=== PATIENT | female | born 1955 | race Caucasian/White ===

== ENCOUNTER 2022-05-14 19:09 | Emergency (ER) | payer MEDICARE, BC, SELFPAY ==
[2022-05-14 19:31] VITALS: BP 139/68; PULSE 82; RESP 16; TEMP 36.5; O2SAT 100
--- NOTE | 2022-05-14 20:05 | ED.FALL ---
HPI - Fall General Chief Complaint: Wound/Laceration Stated Complaint: laceration forehead,fall Time Seen by Provider: 05/14/22 19:35 Source: patient Mode of arrival: ambulatory Limitations: no limitations History of Present Illness HPI Narrative: Reilly is a 6-year-old female patient presenting to the clinic today with complaints of falling in the shower at 0530 this morning and hitting her head on the bathtub. She also reports that she burned her left thigh on a heater when she fell. States she did lose consciousness for approximately 1 minute. She has a 4 cm complex laceration to the left forehead. States she did a prep last night for colonoscopy/EGD and felt as though she may have been dehydrated and got too hot and fainted in the shower. Has a not to the left forehead. She put a Band-Aid over the laceration and went to her procedure in [place]. States that she told the anesthesiologist and GI specialist that she fell and hit her head and lost consciousness and they told her as long as her blood pressure was stable that they would do the procedure. Patient went through with the EGD/colonoscopy procedure. Patient also states that she had iron infusion completed today. Has stopped her Coumadin approximately 1 week ago for procedure. States her hematology Dr. in [place] is going to be prescribing her some Silvadene cream for her burn. Patient drove herself to the clinic today. She denies any headache, dizziness, neck pain, or visual changes. Related Data Home Medications Medication Instructions Recorded Confirmed azilsartan medoxomil 40 1 tablet PO DAILY 05/14/22 05/14/22 mg-chlorthalidone 12.5 mg tablet (Edarbyclor) Allergies Allergy/AdvReac Type Severity Reaction Status Date / Time No Known Allergies Allergy Mild Verified 05/14/22 20:00 Review of Systems Review of Systems: Pertinent positives per HPI. Patient denies any fever, chills, rash, headache, visual changes, dizziness, cough, runny nose, sore throat, shortness of breath, chest pain, palpitations, nausea, vomiting, diarrhea, constipation, abdominal pain, or any urinary issues. [facility] Family History Family History Father Hypertension Family history of diabetes mellitus in first degree relative Social History Social History Smoking status: Never smoker Alcohol intake: never Comments At the time of my signature, I reviewed and agree with the nursing past medical, surgical, social, and family history. There is no relevant family history pertinent to the patient complaint. Exam Narrative: General: Well-developed, well nourished, in no apparent distress Head: Normocephalic, atraumatic Eyes: Pupils equally round and reactive to light bilaterally, EOM intact, sclera and conjunctive clear, no discharge, lids normal Ears: TMs intact and clear, ear canals clear, no drainage, grossly hearing normal. Nose: Nares patent, no discharge, no inflammation, no sinus tenderness. Mouth: Oropharynx without lesions or masses, good dentition, MMM. Tongue midline, even rise and fall of uvula Neck: Supple, trachea midline, no enlargement of anterior or posterior cervical nodes, no thyroid masses or goiter palpable. Cardio: Regular rate and rhythm, s1 and s2 normal, no murmur appreciated. Resp: Clear to auscultation bilaterally anteriorly and posteriorly, no rhonchi, rales, wheezing or rubs Musculoskeletal: No deformity, non-tender to palpation, grossly normal range of motion, muscle strength strong and equal, peripheral pulse strong, no edema, no cyanosis, normal gait and station Neuro: Alert and oriented x4 with normal speech, no focal deficits, cranial nerves I through XII intact, muscle strength 5 out of 5, sensation intact bilaterally, Integumentary: Pale, warm, dry, gapped 4 cm jagged laceration to the left forehead with bruisi
== END 2022-05-14 20:30 | disposition left against medical advice (07) ==
LOC: EXPTROY 19:22
PROVIDERS: Emergency Provider Nurse Practitioner Family
DX: S01.81XA Laceration without foreign body of other part of head, initial encounter (principal); W18.2XXA Fall in (into) shower or empty bathtub, initial encounter; S06.0X9A Concussion with loss of consciousness of unspecified duration, initial encounter; T24.212A Burn of second degree of left thigh, initial encounter; W29.2XXA Contact with other powered household machinery, initial encounter; I10 Essential (primary) hypertension
CPT/HCPCS: 99213; G0463

== ENCOUNTER 2023-06-13 10:38 | Emergency (ER) | payer MEDICARE, BC, SELFPAY ==
--- NOTE | 2023-06-13 10:39 | ED.FEMALEGU ---
HPI - Female Genitourinary General Chief complaint: Urogenital-Female Stated complaint: UTI Time Seen by Provider: 06/13/23 10:39 Source: patient Mode of arrival: ambulatory Limitations: no limitations History of Present Illness HPI Narrative: A 59-year-old female who presents with 2 days of urinary wetness but no incontinence along with the feeling of having spasms. Denies any burning with urination, low back pain, fever, chills, nausea, vomiting, diarrhea. MD elicited complaint: dysuria Related Data Home Medications Medication Instructions Recorded Confirmed cyclosporine 0.05 % eye drops in a 1 drp EACH EYE BID 06/13/23 06/13/23 dropperette (Restasis) olmesartan 40 1 tablet PO DAILY 06/13/23 06/13/23 mg-hydrochlorothiazide 25 mg tablet omeprazole 40 mg capsule,delayed 40 mg PO DAILY 06/13/23 06/13/23 release warfarin 3 mg tablet 3 mg PO DAILY 06/13/23 06/13/23 Allergies Allergy/AdvReac Type Severity Reaction Status Date / Time No Known Allergies Allergy Mild Verified 06/13/23 10:40 Review of Systems Review of Systems: All systems reviewed & are unremarkable except as noted in HPI and below Constitutional: Constitutional: Denies chills, Denies fever(s), Denies headache(s), Denies malaise and Denies weakness Eyes: Eyes: Denies change in vision, Denies eye discharge and Denies irritation ENT: Denies otalgia, Denies headache(s), Denies nasal congestion, Denies nasal discharge, Denies sinus pain and Denies sore throat Cardiovascular: Cardiovascular: Denies chest pain, Denies edema, Denies palpitations and Denies dyspnea Respiratory: Respiratory: Denies cough and Denies dyspnea Gastrointestinal: Gastrointestinal: Denies abdominal pain, Denies diarrhea, Denies nausea and Denies vomiting Genitourinary: Genitourinary: Denies hematuria, Denies nocturia, Denies dysuria, Denies flank pain and Reports urinary urgency Musculoskeletal: Musculoskeletal: Denies back pain and Denies numbness Integumentary/Breasts: Skin/Breast: Denies pruritus and Denies rash Neurologic: Denies headache(s), Denies numbness and Denies weakness Psychiatric: Psychiatric: Reports no additional psychiatric complaints Endocrine: Endocrine: Denies palpitations PMFSH Family History Family History Father Hypertension Family history of diabetes mellitus in first degree relative Social History Social History Smoking status: Never smoker Alcohol intake: never Comments At time of signature, agree with nursing past medical, surgical, social and family history. There is no relevant family history pertinent to the presenting complaint. Exam Const: General: cooperative, healthy appearing, comfortable, no acute distress and well nourished Nutritional Appearance: well nourished Orientation/consciousness: patient oriented x3 HENMT: Head: normocephalic and atraumatic Ears: external ears normal Face/Nose/Sinus: Normal external nose present, Normal nares present and normal facial exam Face and sinus: normal facial exam Eyes: General: appearance normal, both eyes and all related structures Pupils: Equal, round and reactive pupils present EOM: EOMs intact bilaterally Neck: Neck: normal visual inspection, full ROM and supple Chest: Chest palpation & inspection: normal inspection of the chest Resp: Effort & Inspection: normal respiratory effort and able to speak in complete sentences Cardio: Rate: regular rate Rhythm: regular rhythm GI: Inspection: normal to inspection GI Palp: No abdominal tenderness and Yes Soft to palpation : General: Yes no CVA tenderness Back/Spine/Pelvis: Back: no CVA tenderness Skin: General skin exam: normal color and no rashes or lesions noted Neuro: General: patient oriented x3 and moves all extremities Cranial nerves: Yes Equal, round and reactive pupils present Extrem: General:
[2023-06-13 10:49] VITALS: BP 148/84; PULSE 68; RESP 18; TEMP 36.7; O2SAT 99
== END 2023-06-13 11:03 | disposition home or self-care (01) ==
PROVIDERS: Emergency Provider Nurse Practitioner Family
DX: R39.89 Other symptoms and signs involving the genitourinary system (principal); I10 Essential (primary) hypertension; K21.9 Gastro-esophageal reflux disease without esophagitis; Z86.2 Personal history of diseases of the blood and blood-forming organs and certain disorders involving the immune mechanism; Z79.01 Long term (current) use of anticoagulants
CPT/HCPCS: 81003; 87086; 87088; 99213; G0463

== ENCOUNTER 2023-09-14 09:00 | Outpatient (RCR) | payer MEDICARE, BC, SELFPAY ==
--- NOTE | 2023-07-06 12:06 | OPREHPOC ---
Outpatient Therapy Plan of Care This is a Multidisciplinary Plan of Care that may contain components documented by all disciplines (PT, OT, and ST.) PT Problem 1 PT Problem #1 Knowledge Deficit PT Goal 1 Goal 1. Patient will perform independent HEP Target Visit 2 PT Problem 2 PT Problem #2 Impaired Functional ADLs PT Goal 1 Goal 1. Patient able to do all walking and lifting tasks at her prior level 2. Patient will not need to wear pads for incontinence for at least a 2 week period of time Target Visit 4 PT Problem 3 PT Problem #3 Impaired Strength PT Goal 1 Goal 1. Patient will report no more than 1 instance of incontinence in a 2 week period Target Visit 4
--- NOTE | 2023-07-06 12:06 | PTOPEVAL1 ---
Assessment and note entered by Yana Guajardo DPT Evaluation Information Assessment Status Evaluation Subjective Information Pt reports urinary incontinence that started about a month ago, was checked for a UTI which was negative and was told that her pelvic floor has fallen . Voids 3-4 times a day, maybe once at night. Denies pain with urination. Can hold urge at least 15-30 depending on the situation. Incontinence occurs 2-3 times a day, small amount at a time. Incontinence is occurring with walking and is not walking her dog as much and is avoiding lifting activities due to incontinence (like cases of water). Has just recently started wearing pads all the time. BM every day, denies pain. Denies fecal incontinence. Denies history of pelvic pain. Pt has never been . Pt had an ovary removed over 10 years ago and a tummy tuck as well. Diagnosed with diverticulits but avoids trigger foods. Patient goal: stop urine leakage No return to MD scheduled currently. Reported Pain Level Pain Score 0: Self Report Assessment PT Clinical Summary The patient is presenting to skilled therapy with an onset of urinary incontinence about a month ago . She reports daily incontinence, pad use, and demonstrates decreased core strength. She likely presents with pelvic floor weakness but does not consent to full exam this visit- will assess next time if able. She will benefit from therapy to address these impairments in order to improve strength and return to full function. Plan of Care Interventions Manual Therapy,Neuro Re-education,Patient/ Caregiver Education,Therapeutic Activities, Therapeutic Exercise PT Services Indicated Yes Treatment Frequency and 1 time a week for 4 visits Duration These treatments will address the objective and functional deficits as defined above. The patient will be advanced safely and appropriately in order for the patient to progress towards his/her prior level of function. Additional exercises will be introduced and as well as a comprehensive home exercise program upon discharge, if needed, ?to ensure carryover of functional gains achieved in the clinic. This treatment plan has been reviewed and agreement upon by the patient.
--- NOTE | 2023-08-05 09:32 | OPREHPOC ---
Outpatient Therapy Plan of Care This is a Multidisciplinary Plan of Care that may contain components documented by all disciplines (PT, OT, and ST.) PT Problem 1 PT Problem #1 Knowledge Deficit PT Goal 1 Goal 1. Patient will perform independent HEP Target Visit 2 Progress Met PT Problem 2 PT Problem #2 Impaired Functional ADLs PT Goal 1 Goal 1. Patient able to do all walking and lifting tasks at her prior level 2. Patient will not need to wear pads for incontinence for at least a 2 week period of time Target Visit 8 Progress Partially Met PT Problem 3 PT Problem #3 Impaired Strength PT Goal 1 Goal 1. Patient will report no more than 1 instance of incontinence in a 2 week period Target Visit 8 Progress Partially Met Comment 2 times a day
--- NOTE | 2023-08-05 09:32 | PTOPPROG ---
Assessment and note entered by Yana Guajardo DPT Evaluation Information Assessment Status Progress Subjective Information Pt reports improvements with therapy, incontinence is better and is a smaller volume when it does occur. Incontinence daily over the last week, maybe 2 times . Assessment PT Clinical Summary The patient has made some progress in therapy and reports smaller volume of incontinence and decreased frequency of incontinence. She continues to have incontinence daily. Consented to pelvic exam on 07/29/23 and demonstrates pelvic floor weakness and decreased endurance. She will benefit from further therapy to continue improving strength and endurance in order to eliminate incontinence and return to prior level of function . Plan of Care Interventions Manual Therapy,Neuro Re-education,Patient/ Caregiver Education,Therapeutic Activities, Therapeutic Exercise PT Services Indicated Yes Treatment Frequency and 1 time a week for 4 visits Duration These treatments will address the objective and functional deficits as defined above. The patient will be advanced safely and appropriately in order for the patient to progress towards his/her prior level of function. Additional exercises will be introduced and as well as a comprehensive home exercise program upon discharge, if needed, ?to ensure carryover of functional gains achieved in the clinic. This treatment plan has been reviewed and agreement upon by the patient.
--- NOTE | 2023-09-14 09:23 | OPREHPOC ---
Outpatient Therapy Plan of Care This is a Multidisciplinary Plan of Care that may contain components documented by all disciplines (PT, OT, and ST.) PT Problem 1 PT Problem #1 Knowledge Deficit PT Goal 1 Goal 1. Patient will perform independent HEP Target Visit 2 Progress Met PT Problem 2 PT Problem #2 Impaired Functional ADLs PT Goal 1 Goal 1. Patient able to do all walking and lifting tasks at her prior level 2. Patient will not need to wear pads for incontinence for at least a 2 week period of time Target Visit 8 Progress Met PT Problem 3 PT Problem #3 Impaired Strength PT Goal 1 Goal 1. Patient will report no more than 1 instance of incontinence in a 2 week period Target Visit 8 Progress Partially Met Comment hardly any
--- NOTE | 2023-09-14 09:23 | PTOPDC ---
Assessment and note entered by Yana Guajardo DPT Evaluation Information Assessment Status Discharge Subjective Information Pt reports continued improvements with therapy, hardly any incontinence over the last week. Very small volume when it does occur and no longer wearing pads. States cutting back on caffeine seems to have helped a lot too. Reported Pain Level Pain Score 0: Self Report Assessment PT Clinical Summary The patient has made good progress in therapy and reports decreased frequency and volume of incontinence. She is no longer wearing pads. Due to her progress, plan for discharge at this time. She has been educated in a thorough HEP and to follow up with MD and/or PT as needed. Plan of Care PT Services Indicated No
== END 2023-09-14 10:38 | disposition home or self-care (01) ==
LOC: ANHPT 09:00
DX: N39.3 Stress incontinence (female) (male) (principal); N81.89 Other female genital prolapse
CPT/HCPCS: 97112; 97161; 97530